=== PATIENT | male | born 1930 | race Caucasian/White ===

== ENCOUNTER 2016-11-21 07:21 | Day surgery (SDC) | payer MEDICARE, BC ==
--- NOTE | ~2016-11-21 | EGD ---
EGD REPORT [facility] [address] [address] [id number] NAME: GEORGE MENDOZA : [birth year] STATUS : REG [facility]#: [id number] AGE: 86 ADM/REG DATE : 11/21/16 MR#: [id number] REPORT SERV DATE: 11/21/16 DICTATED BY: ROBERT GUADARRAMA DATE: 11/21/16 REPORT STATUS : Draft [facility]ANS[facility]: [facility] DATE: 11/21/16 [facility] Patient Name: George Mendoza Date of : 1930 Attending MD: TASH GUADARRAMA MD Procedure Date No Time: 11/21/2016 Procedure: Colonoscopy Indications: Hematochezia Referring MD: JENNIFER CONTRERAS Medicines: See the Anesthesia note for documentation of the administered medications Complications: No immediate complications. Estimated blood loss: Minimal. Procedure: Pre-Anesthesia Assessment: - ASA Grade Assessment: III - A patient with severe systemic disease. - Prior to the procedure, a History and Physical was performed, and patient medications and allergies were reviewed. The patient's tolerance of previous anesthesia was also reviewed. The risks and benefits of the procedure and the sedation options and risks were discussed with the patient. All questions were answered, and informed consent was obtained. Prior Anticoagulants: The patient has taken anticoagulant medication, last dose was 2 days prior to procedure. After reviewing the risks and benefits, the patient was deemed in satisfactory condition to undergo the procedure. After I obtained informed consent, the scope was passed under direct vision. Throughout the procedure, the patient's blood pressure, pulse, and oxygen saturations were monitored continuously. The PCF [id number] was introduced through the anus and advanced to the cecum, identified by appendiceal orifice and ileocecal valve. The ileocecal valve, appendiceal orifice and rectum were photographed. Findings: The perianal and digital rectal examinations were normal. A sessile polyp was found at the hepatic flexure. The polyp was 8 mm in size. The polyp was removed with a cold snare. Resection and retrieval were complete. A sessile polyp was found in the cecum. The polyp was 10 mm in size. The polyp was removed with a cold snare. Resection and retrieval were complete. A sessile polyp was found in the mid ascending colon. The polyp was 12 EGD REPORT [place] [id number] [place]. [address] NAME: GEORGE MENDOZA : [birth year] STATUS : REG [facility]#: [id number] AGE: 86 ADM/REG DATE : 11/21/16 MR#: [id number] REPORT SERV DATE: 11/21/16 DICTATED BY: ROBERT GUADARRAMA DATE: 11/21/16 REPORT STATUS : Draft [facility]IB[facility]: [facility] DATE: 11/21/16 mm in size. The polyp was removed with a cold snare. Resection and retrieval were complete. A sessile polyp was found in the proximal transverse colon. The polyp was 5 mm in size. The polyp was removed with a cold snare. Resection and retrieval were complete. A sessile polyp was found in the mid transverse colon. The polyp was 7 mm in size. The polyp was removed with a cold snare. Resection and retrieval were complete. Multiple medium-mouthed diverticula were found in the entire colon. Non-bleeding internal hemorrhoids were found during retroflexion and were Grade I (internal hemorrhoids that do not prolapse). No other significant abnormalities were identified in a careful examination of the remainder of the colon. Impression: - One 8 mm polyp at the hepatic flexure. Resected and retrieved. - One 10 mm polyp in the cecum. Resected and retrieved. - One 12 mm polyp in the mid ascending colon. Resected and retrieved. - One 5 mm polyp in the proximal transverse colon. Resected and retrieved. - One 7 mm polyp in the mid transverse colon. Resected and retrieved. - Diverticulosis in the entire examined colon. - Non-bleeding internal hemorrhoids. Recommendation: - Patient has a contact number available for emergencies. The signs and symptoms of potential delayed complications were discussed with the patient. Return to normal activities tomorrow. Written discharge instructions were provided to the patient. - High fiber diet indefinitely. - Discharge patient to home. - Continue present medications. - Await pathology results. - Repeat colonoscopy is not recommended for surveillance. - Make sure you restart Eliquis today Procedure Code(s): --- Professional --- 47948, Colonoscopy, flexible, proximal to splenic flexure; with removal of tumor(s), polyp(s), or other lesion(s) by snare technique Diagnosis Code(s): --- Professional --- D12.2, Benign neoplasm of ascending colon D12.0, Benign neoplasm of cecum D12.3, Benign neoplasm of transverse colon EGD REPORT [address] [address] NAME: GEORGE MENDOZA : 34 STATUS : REG [facility] PAT#: [id number] AGE: 86 ADM/REG DATE : 11/21/16 MR#: [id number] REPORT SERV DATE: 11/21/16 DICTATED BY: ROBERT GUADARRAMA DATE: 11/21/16 REPORT STATUS : Draft TRANSCRIBED BY: [employer] DATE: 11/21/16 K64.0, First degree hemorrhoids K57.30, Diverticulosis of large intestine without perforation or abscess without bleeding K92.1, Melena CPT copyright 2013 [employer]. All rights reserved. The codes documented in this report are preliminary and upon senior field engineer review may be revised to meet current compliance requirements. TASH GUADARRAMA MD 11/21/2016 10:30 AM This report has been signed electronically. Number of Addenda: 0 Note Initiated On: 11/21/2016 9:36 AM Scope Withdrawal Time 0 hours 20 minutes 20 seconds [id number] [id number]
[~2016-11-21 07:21] MED LIST: ASAB PO; DIOV160 PO; ELIQUIS 5 MG TAB5 MG PO; NORV10 PO; PLAVIX PO; ZANTAC 150 PO
== END 2016-11-21 23:59 | disposition home or self-care (01) ==
LOC: DMU 07:21
PROVIDERS: Internal Medicine Gastroenterology
PROC: 0DBQ8ZX Excision of Anus, Via Natural or Artificial Opening Endoscopic, Diagnostic (ICD-10-PCS; 2016-11-21)
PROC: 0DBK8ZX Excision of Ascending Colon, Via Natural or Artificial Opening Endoscopic, Diagnostic (ICD-10-PCS; 2016-11-21)
PROC: 0DBL8ZX Excision of Transverse Colon, Via Natural or Artificial Opening Endoscopic, Diagnostic (ICD-10-PCS; principal; 2016-11-21 09:00)
DX: D12.2 Benign neoplasm of ascending colon (principal); D12.0 Benign neoplasm of cecum; D12.3 Benign neoplasm of transverse colon; K64.0 First degree hemorrhoids; K57.30 Diverticulosis of large intestine without perforation or abscess without bleeding; I10 Essential (primary) hypertension; I48.91 Unspecified atrial fibrillation; I73.9 Peripheral vascular disease, unspecified; F17.210 Nicotine dependence, cigarettes, uncomplicated; Z88.0 Allergy status to penicillin; Z95.5 Presence of coronary angioplasty implant and graft; Z88.5 Allergy status to narcotic agent; Z96.643 Presence of artificial hip joint, bilateral; Z98.41 Cataract extraction status, right eye; Z98.42 Cataract extraction status, left eye; Z96.1 Presence of intraocular lens; Z98.890 Other specified postprocedural states
CPT/HCPCS: 88305